=== PATIENT | male | born 1930 | race Caucasian/White ===

== ENCOUNTER 2016-05-11 23:39 | Emergency (ER) | payer MEDICARE, OTHER ==
[~2016-05-11 23:39] MED LIST: Lidocaine 1% 20 ML MDV INFILT ONE
[2016-05-12] MEDS ORDERED: cefTRIAXone 1,000 MG VIAL IM ONE (00:20)
[2016-05-12] MEDS ORDERED: Levofloxacin 250 MG Tab PO ONE (00:22)
[2016-05-12 00:26] VITALS: BP 126/69
--- NOTE | 2016-05-12 00:28 | EDM.PDOC ---
ED HPI Skin/Rash - General Chief Complaint: Laceration Stated Complaint: cut to left little toe Time Seen by Provider: 05/11/16 23:45 Source: Reports: Patient, Family History Limitations: Reports: Altered mental status, Physical impairment - History of Present Illness INITIAL COMMENTS - FREE TEXT/NARRATIVE: 86 years old w tej came to the ed after her was seen in front of his bed, bleeding from his left little toe. Mech of injury is unknown. Pt has severe dementia Symptom Onset Date: 05/11/16 Symptom Onset Time: 22:00 Timing: Reports: still present Location, Skin: Reports: lower extremity, left Quality: Reports: Sharp Severity: mild Known Identified Source: no Place: home Associated symptoms: Reports: confusion Similar Symptoms Previously: no - Related Data Allergies Allergy/AdvReac Type Severity Reaction Status Date / Time erythromycin base Allergy Cannot Verified 05/12/16 00:23 Remember Penicillins Allergy Cannot Verified 05/12/16 00:23 Remember Home Meds: Ambulatory Orders Medication Instructions Recorded Confirmed Allopurinol [Allopurinol] 200 mg PO DAILY 05/12/16 05/12/16 Donepezil [Aricept] 10 mg PO BEDTIME 05/12/16 05/12/16 Furosemide [Furosemide] 80 mg PO DAILY 05/12/16 05/12/16 LORazepam [Ativan] 0.5 mg PO Q8HR PRN 05/12/16 05/12/16 LORazepam [LORazepam] 1 mg PO BID 05/12/16 05/12/16 Levofloxacin 500 mg PO DAILY #10 tablet 05/12/16 Metoprolol Tartrate [Lopressor] 50 mg PO DAILY 05/12/16 05/12/16 atorvaSTATin [Lipitor] 20 mg PO BEDTIME 05/12/16 05/12/16 traZODone 25 mg PO BEDTIME 05/12/16 05/12/16 ED ROS GENERAL - Review of Systems Review Of Systems: Unable To Obtain ED EXAM, SKIN/RASH Exam: See Below Exam Limited By: Altered mental status General Appearance: alert, WD/WN, no apparent distress Eye Exam: bilateral eye: normal inspection Ears: normal external exam, normal canal Nose: normal inspection, normal mucosa, no blood Throat/Mouth: Normal lips, Normal teeth, Normal gums, Normal oropharynx, Normal voice, No airway compromise Head: atraumatic, normocephalic Neck: normal inspection, supple, non-tender, full range of motion Respiratory/Chest: no respiratory distress, lungs clear, normal breath sounds, no accessory muscle use, chest non-tender Cardiovascular: normal peripheral pulses, regular rate, rhythm, no murmur, no rub Peripheral Pulses: 3+: femoral (L), femoral (R) GI/Abdominal: normal bowel sounds, soft, non tender, no organomegaly, no distention, no abnormal bruit, no mass (Male) Exam: Deferred Rectal (Males) Exam: Deferred Back Exam: normal inspection, full range of motion Extremities: normal inspection, normal range of motion, non-tender, no pedal edema, normal capillary refill Neurological: alert, CN II-XII intact, confused, slow to respond Psychiatric: normal affect Skin: Other (Laceration left 5th toe) Location, Skin: lower extremity, left Characteristics: other (Linear laceration) Lymphatic: no adenopathy ED SKIN PROCEDURES - Laceration/Wound Repair Left Other Lac/wound length in cm: 1 (left lettle toe) Appearance: subcutaneous, linear, mildly contaminated Distal NVT: neuro & vascular intact, no tendon injury Anesthetic type: local Local anesthesia - Lidocaine (Xylocaine): 1% plain Local anesthetic volume: 2cc Skin prep: chlorhexidine (hibiciens) Saline irrigation (cc's): 5 Exploration/Debridement/Repair: wound explored, in a bloodless field, explored to base Closed with: sutures Suture size: 3-0 Suture type: interrupted Suture size: 3-0 # of sutures: 3 Sterile dressing applied: nurse Tetanus status addressed: Yes Complications: No Course - Vital Signs Text/Narrative:: 86 years old w m came to the ed after her was seen in front of his bed, bleeding from his left little toe. Mech of injury is unknown. Pt has severe dementia PE: LAC base of left 5th finger, no active bleed Imaging: left foot/toes No acute fracture Impression: Lac left 5th toe, repaired Tx: Levoquine, wound repair Impression: Improved Plan: D/c with instructions Last Recorded V/S: Last Vital Signs Temp 36.4 C 05/11/16 23:45 Pulse 93 05/11/16 23:45 Resp 18 05/11/16 23:45 BP 126/69 05/11/16 23:45 Pulse Ox 93 L 05/11/16 23:45 - Orders/Labs/Meds Meds: Medications Discontinued Medications Generic Name Dose Route Start Last Admin Trade Name Lee PRN Reason Stop Dose Admin Ceftriaxone Sodium 1,000 mg 05/12/16 00:20 Rocephin IM 05/12/16 00:21 ONETIME ONE Levofloxacin 500 mg 05/12/16 00:22 05/12/16 00:53 Levaquin PO 05/12/16 00:23 500 mg ONETIME ONE Administration Lidocaine HCl 2 ml 05/11/16 23:39 Xylocaine 1% INFILT 05/11/16 23:40 .STK-MED ONE Departure - Departure Time of Disposition: 00:58 Disposition: Home, Self-Care 01 Condition: good Clinical Impression: Laceration Prescriptions: Levofloxacin 500 mg PO DAILY #10 tablet Instructions: Laceration Care, Adult, [id number] Referrals: Dada Correa MD [Primary Care Provider] - Forms: ED Department Discharge Additional Instructions: Wound check in 3 days, please the levoquine as recommended, suture removal in 14 days, please come back if symptoms get worse acutely
--- NOTE | 2016-05-12 10:50 | CR ---
INDICATION: Trauma. LEFT FOOT: Three views of the left foot were obtained and revealed diminished bone density, suggesting osteomalacia or osteoporosis. Extensive arterial calcification is noted. There is an oblique lucent line through the proximal metaphysis of the proximal phalanx of the 5th toe, compatible with a hairline fracture in good position and alignment. At a similar location in the 4th toe, there is an irregularity along the medial aspect of the proximal metaphysis of the proximal phalanx, raising question of a chip fracture fragment in that area. No other acute abnormality was suggested. There are some mild degenerative changes at the first metatarsophalangeal joint and interphalangeal joint of the great toe and DIPJs of the 2nd, 3rd, and 4th toes, as well as the first metatarsotarsal joint. IMPRESSION: 1. Hairline fracture proximal 5th toe. 2. Possible chip fracture fragment 4th toe. 3. ASD. 4. Demineralization raising question of osteomalacia or osteoporosis. 5. Osteoarthritis. Report was called to Dr. Acevedo at 1019 hours on 05/12/2016. [place]
== END 2016-05-12 01:10 | disposition still patient (30) ==
LOC: FB.ED 23:39
DX: S91.115A Laceration without foreign body of left lesser toe(s) without damage to nail, initial encounter (principal); Z88.0 Allergy status to penicillin; Z88.8 Allergy status to other drugs, medicaments and biological substances; X58.XXXA Exposure to other specified factors, initial encounter
CPT/HCPCS: 12001; 73630; 96372; 99282; 99283; A4217; A9270